=== PATIENT | female | born 1950 ===

== ENCOUNTER 2024-11-03 14:36 | Outpatient (REF) | payer OTHER, SELFPAY ==
--- OUTSIDE RECORDS SUMMARY | 2024-11-03 18:00 | XMS_ITS | Continuity of Care Document ---
Author Organization [facility], [facility] Address [address] [place] [address] Assessment Encounter Date Assessment Date Assessment LastModified by Organization Details LastModified Time 11/03/2024 11/03/2024 [address] [place] [id number] (EMAIL ADMINISTRATOR) MDM MODERATE MUST MEET 2 OUT OF 3 ELEMENTS: PROBLEMS, DATA OR RISK ELEMENT 1: PROBLEMS ADDRESSED 1 OR MORE CHRONIC ILLNESS WITH EXACERBATION OR 2 OR MORE STABLE CHRONIC ILLNESSES OR 1 UNDIAGNOSED NEW PROBLEM OR 1 ACUTE ILLNESS W/SYMPTOMS OR 1 ACUTE COMPLICATED INJURY ELEMENT 2: DATA MUST MEET 1 OF 3 CATEGORIES CATEGORY 1: REVIEW OF PRIOR EXTERNAL NOTES, REVIEW OF RESULTS, ORDERING OF EACH TEST, ASSESSMENT REQUIRING INDEPENDENT HISTORIAN OR CATEGORY 2: INDEPENDENT INTERPRETATION OF TESTS BY ANOTHER PHYSICIAN OR SPECIALIST OR CATEGORY 3: DISCUSSION OF MGT OR TEST INTERPRETATION W/EXTERNAL PHYSICIAN OR SPECIALIST ELEMENT 3: RISK RISK OF COMPLICATIONS AND/OR MORBIDITY OR MORTALITY OF PATIENT MANAGEMENT PROVIDER MUST THOROUGHLY DOCUMENT EACH ELEMENT THAT IS COVERED Not available 11/03/2024 14:20:27 Plan of Treatment Reminders Order Date Submit Date Provider Last Modified By Organization Details Last Modified Time Details Appointments FOLLOW UP 15 2024 02:00P M DR GASTELUM Not available Not available Not available FOLLOW UP 15 2024 02:00P M DR GASTELUM Not available Not available Not available Lab urinalysi s complete, reflex culture 2024 025 [facility], [address] [place] [address], [place], [address], 11/03/2024 14:32:20 Referral None recorded. Procedures None recorded. Surgeries None recorded. Imaging None recorded. Medication Orders clotrimaz ole-betam ethasone 1 %-0.05 % topical cream 2024 025 [facility], [address], [place], [address], 11/03/2024 14:25:00 Patient TargetsNo targets recorded. Patient Instructions Encounter Date Encounter Id Patient Instructions Last Modified By Organization Details Last Modified Time 11/03/2024 [id number] Urinary Tract Infection (UTI) in Women: Care Instructions Not available 11/03/2024 14:24:57 hypothyroidism: care instructions Not available 11/03/2024 14:24:57 Reason for Referral None Reported. 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 Tana nichols [facility] 5 10:39:47 Plantar wart of left foot 282011950144 79807 Active 2022 Tana nichols [facility] 4 08:15:36 Hyperchol esterolem ia 53928009 Active 2023 Tana nichols [facility] 4 08:15:04 Diverticu losis of colon 821767291 Active 2023 Tana nichols [facility] 5 10:39:47 Overactiv e urinary bladder 848905591 Active 2023 Tana nichols [facility] 5 10:39:47 Pain in urethra 3598822 Active 2024 Hermelindo Gastelum, DO [address], [place], [address], [facility] 5 14:14:50 Urinary tract infectiou s disease 17611774 Active 2024 Hermelindo Gastelum, DO [address], [place], [address], [facility] 5 14:23:16 Problem Notes None recorded. Medical Equipment None Reported. Allergies Allergen ID Allergen Name Allergen Category Reaction Reaction Severity Criticality Documentation Date Start Date Code Code System Note Provider Name and Address Organization Details Recorded Time 3796 Product containin g penicilli n (product) medicatio n Not available Not available Not available 12/02/2019 08512 8001 SNOMED [facility] 08:[facility]28 7971 morphine medicatio n Not available Not available Not available 12/13/2023 7052 RxNorm [facility] 4 10:56:39 Medications Name Sig Start Date Stop Date Status Note LastModified by Organization Details LastModified Time oxybutynin chloride ER 10 mg tablet,exte nded release 24 hr Take 1 tablet every day by oral route for 30 days. active Not Available Not Available No t Available cefpodoxime 100 mg tablet TAKE 1 TABLET BY MOUTH TWICE A DAY FOR 7 DAYS 06/09 completed Not Available Not Available Not Available prednisone 20 mg tablet TAKE 3 TABLETS BY MOUTH FOR 5 DAYS TAKE 2 TABLETS DAILY FOR 5 DAYS TAKE 1 TABLET DAILY FOR 5 DAYS 11/14 completed Not Available Not Available Not Available alendronate 70 mg tablet TAKE 1 TABLET EVERY WEEK BY MOUTH 11/27 completed Not Available Not Available Not Available ciprofloxac in 250 mg tablet TAKE 1 TABLET BY MOUTH TWICE A DAY 12/12 completed Not Available Not Available Not Available tramadol 50 mg tablet TAKE 1 TABLET (50 MG TOTAL) BY MOUTH EVERY 6 HOURS NEEDED FOR PAIN 11/27 completed Not Available Not Available Not Available ketorolac 0.5 % eye drops INSTILL 1 DROP IN RIGHT EYE THREE TIMES A DAY FOR 3 WEEKS FOLLOWING SURGERY ON 02-19-2205/14 completed Not Available Not Available Not Available levothyroxi ne 100 mcg tablet 03/30 completed Not Available Not Available Not Available levothyroxi ne 88 mcg tablet TAKE 1 TABLET BY MOUTH EVERY DAY active Not Available Not Available No t Available prednisolon e acetate 1 % eye drops,suspe nsion INSTILL 1 DROP IN BOTH EYES THREE TIMES A DAY 11/27 completed Not Available Not Available Not Available cephalexin 500 mg capsule TAKE 1 CAPSULE BY MOUTH THREE TIMES A DAY FOR 7 DAYS 12/12 completed Not Available Not Available Not Available clotrimazol e-betametha sone 1 %-0.05 % topical cream Apply 1 applicati on twice a day by topical route as directed for 10 days. 2024 active Not Available Not Available Not Avai lable lisinopril 10 mg tablet TAKE 1 TABLET BY MOUTH EVERY DAY active Not Available Not Available No t Available morphine 15 mg immediate release tablet TAKE 1 TABLET (15 MG TOTAL) BY MOUTH EVERY 6 (SIX) HOURS NEEDED FOR PAIN 12/12 completed Not Available Not Available Not Available ondansetron 4 mg disintegrat ing tablet DISSOLVE 1 TO 2 TABLET BY MOUTH EVERY 8 HOURS NEEDED FOR NAUSEA/VO MITING 12/12 completed Not Available Not Available Not Available Vitamin B12 500 mcg tablet Take 2 tablets every day by oral route. active Not Available Not Available No t Available rosuvastati n 10 mg tablet TAKE 1 TABLET BY MOUTH EVERY DAY FOR 30 DAYS active Not Available Not Available No t Available nitrofurant oin monohydrate /macrocryst als 100 mg capsule TAKE 1 CAPSULE BY MOUTH TWICE A DAY FOR 5 DAYS 05/14 completed Not Available Not Available Not Available Vitamin D3 2,000 IU daily active Not Available Not Available No t Available Vitals Date Recorded Body height Body mass index (BMI) Body weight Heart rate Oxygen saturation Oxygen saturation in Arterial blood by Pulse oximetry Systolic blood pressure Diastolic blood pressure Provider Name and Address Organization Details Last Updated DateTime 5 160.66 cm 21.8 kg/m2 74452.1 7 g 77 /min 97 % 97 % 118 mm[Hg] 78 mm[Hg] Tana Fernando [facility] 5 13:58:58 Social History Question Answer Notes LastModified by Organizat ion Details LastModified Time Tobacco Smoking Status Former Smoker Hermelindo Gastelum, DO [address], [place], [address], [facility] 12/02/2019 09:18:05 What Was The Date Of Your Most Recent Tobacco Screening? 11/03/2024 [email or web address] Information not available 11/03/2024 Do You Or Have You Ever Used Any Other Forms Of Tobacco Or Nicotine? No Information not available 11/27/2022 Sex: Unknown Functional Status None recorded. Mental Status None recorded. Family History Nothing Reported. Medical History No medical history recorded. Gynecological HistoryNo gynecological history recorded. Obstetrics History GPAL:G 0 P 0 0 0 0 Immunizations Vaccine Type Date Status Note Provider Nam e and Address Organization Details Recorded Time COVID-19, mRNA, LNP-S, PF, 100 mcg/0.5mL dose or 50 mcg/0.25mL dose 1 completed Not Available [facility] 04/02/2023 05:06:18 COVID-19, mRNA, LNP-S, PF, 100 mcg/0.5mL dose or 50 mcg/0.25mL dose 1 completed Not Available [facility] 04/02/2023 05:06:18 Influenza, split virus, quadrivalent, preservative 1 completed Not Available [facility] 04/02/2023 05:06:18 COVID-19, mRNA, LNP-S, PF, 100 mcg/0.5mL dose or 50 mcg/0.25mL dose 1 completed Not Available [facility] 04/02/2023 05:06:18 Pneumococcal conjugate PCV 13 1 completed Not Available [facility] 04/02/2023 05:06:19 influenza, unspecified formulation 2 completed Not Available [facility] 04/02/2023 05:06:19 pneumococcal polysaccharide PPV23 3 completed Not Available [facility] 04/02/2023 05:06:19 COVID-19 mRNA, bivalent, original/Omicron BA.1, Non-US Vaccine (Spikevax Bivalent), Moderna 3 completed Not Available [facility] 04/02/2023 05:06:18 Influenza, split virus, quadrivalent, preservative 8 completed Not Available [facility] 04/02/2023 05:06:18 Influenza, split virus, quadrivalent, preservative 9 completed Not Available [facility] 04/02/2023 05:06:18 Influenza, split virus, quadrivalent, preservative 0 completed Not Available [facility] 04/02/2023 05:06:18 zoster recombinant 0 completed Not Available [facility] 04/02/2023 05:06:18 zoster recombinant 1 completed Not Available [facility] 04/02/2023 05:06:18 Past Encounters Encounter ID Performer Location Encounter Start Date Encounter Closed Date Diagnosis/Indication Diagnosis SNOMED-CT Code Diagnosis ICD10 Code Diagnosis Note [id number] Hermelindo Gastelum, [facility] [address],[place] [address] 11/03/2024 13:48:10 11/03/2024 14:52:14 Depression screening 217018141 Z13.31 neg Pain in urethra 1503551 N36.8 will try local treatment after she gives us a ur sample Hypothyroidism 11754715 E03.9 will rechk her lab in a few months Hypercholesterolemia 136 90442 E78.00 will start with rosuvastat in Diverticul osis of colon 177390410 K57.30 cont fiber but having small bouts of inflammati ontold to try ibuprofen and get back Urinary tr act infectious disease 27094372 N39.0 need sample Health Concerns Section Related Observation LastModified by Organization Detai ls LastModified Time None Recorded Concern Status LastModified by Organization Details LastModified Time None Recorded Payers Encounter Date Sequence Insurance Name Policy Number Policy Amezquita Covered Member ID Amezquita Member ID Guarantor Name 11/03/2024 1 [facility] [id number] Komal De Los Santos [id number] Komal De Los Santos Notes Date Note Type Note Provider Name a nd Address Organization Details Recorded Time 11/03/2024 text/html here for rechk h as her now in the [facility] homes[place] has an irritation at the site of her urethrasymptom is there all the time she also describes an occ heaviness at night on her chest that will last a couple minutes divertic has been quiet she has been very careful with her diet prior:still having discomfort to her LLQ abd on occ and has been better with metamucil but still has occ pain in her LLQ region and her back no fever no chills etcalso having issues with her bladder frequency Hermelindo Gatselum, DO [address], [place], [address], [facility] 11/03/2024 14:39:01 OBGyn Episode No OBEpisode recorded.
--- OUTSIDE RECORDS SUMMARY | 2024-11-03 18:00 | XMS_ITS | Data Portability ---
Author Organization [facility], Home Service Address [address] [facility] [place] [address] Assessment Encounter Date Assessment Date Assessment LastModified by Organization Details LastModified Time 06/09/2024 06/09/2024 [id number] [place] [id number] (PERSONAL DEVELOPMENT COACH) MDM HIGH MUST MEET 2 OUT OF 3 ELEMENTS: PROBLEMS, DATA OR RISK ELEMENT 1: PROBLEMS 1 OR MORE CHRONIC ILLNESS W/SEVERE EXACERBATION, PROGRESSION MAY REQUIRE HOSPITAL LEVEL CARE OR 1 ACUTE OR CHRONIC ILLNESS OR INJURY THAT POSES A THREAT TO LIFE OR BODILY FUNCTION ELEMENT 2: DATA: MUST MEET 2 OF 3 CATEGORIES CATEGORY 1 REVIEW OF PRIOR EXTERNAL NOTES REVIEW OF THE RESULTS ORDERING OF EACH TEST ASSESSMENT REQUIRING INDEPENDENT HISTORIAN(S) CATEGORY 2: INDEPENDENT INTERPRETATION OF TESTS BY ANOTHER PROVIDER/SPECIALI ST CATEGORY 3: DISCUSSION OF MGT OR TEST INTERPRETATION W/EXTERNAL PHYSICIAN/SPECIAL IST ELEMENT 3: RISK HIGH RISK OF MORBIDITY FROM ADDITIONAL DIAGNOSTIC TESTING OR TREATMENT PROVIDER MUST THOROUGHLY DOCUMENT EACH ELEMENT THAT IS COVERED Not available 06/09/2024 11:18:21 08/11/2024 08/11/2024 [id number] [place] [id number] (PERSONAL DEVELOPMENT COACH) MDM MODERATE MUST MEET 2 OUT OF [...] EACH ELEMENT THAT IS COVERED Not available 08/11/2024 14:07:36 11/03/2024 11/03/2024 [id number] [place] [id number] (PERSONAL DEVELOPMENT COACH) MDM MODERATE MUST MEET 2 OUT OF [...] urinalysi s complete, reflex culture 2024 025 [facility], [address] [place] [address], [place], [address], 11/03/2024 14:32:20 CBC w/ auto diff 2023 024 [facility], [place], [address], 06/12/2024 12:58:16 ferritin, serum or plasma 2023 024 [facility], [place], [address], 06/09/2024 11:19:16 folate, serum 2023 024 [facility], [place], [address], 06/09/2024 11:19:16 iron + total iron-bind ing capacity (TIBC), serum 2023 [facility], [place], [address], 06/09/2024 11:19:16 vitamin B12, serum [address] [facility], [place], [address], 06/12/2024 13:23:08 C-reactiv e protein, quantitat ev, serum or plasma 2023 024 [facility], [place], [address], 06/09/2024 11:19:16 ESR (erythroc yte sedimenta tion rate), blood 2023 [facility], [place], [address], 06/09/2024 11:19:16 vitamin D, 25-hydrox y, total, serum 2023 [facility], [place], [address], 06/09/2024 11:19:15 CMP, serum or plasma 2023 024 [facility], [place], [address], 06/09/2024 11:19:16 TSH, serum or plasma 2023 024 [facility], [place], [address], 08/06/2024 01:12:51 lipid panel, blood 2023 024 [facility], [place], [address], 03/25/2024 12:11:36 TSH, serum or plasma 2023 024 [facility], [place], [address], 03/25/2024 12:11:36 lipid panel, blood 2023 024 [facility], [place], [address], 12/17/2023 15:43:36 CBC w/ auto diff 2023 024 [facility], [place], [address], 12/17/2023 12:56:00 CMP, serum or plasma 2023 024 [facility], [place], [address], 12/13/2023 11:22:13 vitamin D, 25-hydrox y, total, serum 2023 024 [facility], [place], [address], 12/17/2023 15:15:39 Referral None recorded. Procedures None recorded. Surgeries None recorded. Imaging None recorded. Medication Orders clotrimaz ole-betam ethasone 1 %-0.05 % topical cream 2024 025 [facility], [address] [place], [address], 11/03/2024 14:25:00 oxybutyni n chloride ER 10 mg tablet,ex tended release 24 hr 2023 024 [facility]2024, [address] [place], [address], 08/11/2024 14:15:51 rosuvasta tin 10 mg tablet 2023 024 [facility]2024, [address] [place], [address], 03/25/2024 12:08:06 Patient TargetsNo targets recorded. Patient Instructions Encounter Date Encounter Id Patient Instructions Last Modified By Organization Details Last Modified Time 03/25/2024 [id number] osteoporosis: care instructions Not available 03/25/2024 12:08:04 hypothyroidism: care instructions Not available 03/25/2024 12:08:04 06/09/2024 [id number] hypothyroidism: care instructions Not available 06/09/2024 11:17:46 11/03/2024 [id number] Urinary Tract Infection (UTI) in Women: Care Instructions Not available 11/03/2024 14:24:57 hypothyroidism: care instructions Not available 11/03/2024 14:24:57 Reason for Referral None Reported. Results Created Date Observation Date Name Description Value Unit Range Abnormal Flag Note LastModifiedBy Organization Detail LastModifiedTime Result Notes None recorded. Problems Name Problem SNOMED Code Status Onset Date Resolution Date Notes Provider Name and Address Organization Details Recorded Time Hypothyro idism 10561172 Active 2019 Tana nichols [facility] 4 08:15:07 Osteoporo sis 54334601 Active 2019 Tana nichols [facility] 4 08:15:10 Acquired hydroneph rosis due to ureterope lvic junction obstructi on 026293501 Active 2021 left Tana nichols [facility] 5 10:39:47 Plantar wart of left foot 006860565718 23596 Active 2022 Tana nichols [facility] 4 08:15:36 Hyperchol esterolem ia 70044429 Active 2023 Tana nichols [facility] 4 08:15:04 Diverticu losis of colon 101628881 Active 2023 Tana nichols [facility] 5 10:39:47 Overactiv e urinary bladder 648099102 Active 2023 Tana nichols [facility] 5 10:39:47 Pain in urethra 5002950 Active 2024 Hermelindo Lam Chiquita, DO [address] [place], [address], [facility] 5 14:14:50 Urinary tract infectiou s disease 27410372 Active 2024 Hermelindo Lam Chiquita, DO [address] [place], [address], [facility] 5 14:23:16 Problem Notes None recorded. Medical Equipment None Reported. Allergies Allergen ID Allergen Name Allergen Category Reaction Reaction Severity Criticality Documentation Date Start Date Code Code System Note Provider Name and Address Organization Details Recorded Time 3796 Product containin g penicilli n (product) medicatio n Not available Not available Not available 12/02/2019 26018 8001 SNOMED [facility] 08:15:28 7971 morphine medicatio n Not available Not available Not available 12/13/2023 7052 RxNorm [facility] 4 10:56:39 Medications Name Sig Start [...] and Address Organization Details Last Updated DateTime 4 160.66 cm 21.8 kg/m2 65100.8 1 g 101 /min 98 % 98 % 136 mm[Hg] 88 mm[Hg] Tana Dempsey [facility] 4 10:59:39 Date Recorded Body height Body mass index (BMI) Body weight Heart rate Oxygen saturation Oxygen saturation in Arterial blood by Pulse oximetry Systolic blood pressure Diastolic blood pressure Provider Name and Address Organization Details Last Updated DateTime 4 160.66 cm 21.3 kg/m2 24505.6 8 g 81 /min 98 % 98 % 110 mm[Hg] 60 mm[Hg] Jennifer Arrieta [facility] 4 11:43:05 Date Recorded Body height Body mass index (BMI) Body weight Heart rate Oxygen saturation Oxygen saturation in Arterial blood by Pulse oximetry Systolic blood pressure Diastolic blood pressure Provider Name and Address Organization Details Last Updated DateTime 4 160.66 cm 20.9 kg/m2 42028.4 1 g 91 /min 99 % 99 % 128 mm[Hg] 82 mm[Hg] Tana Abdullahi [facility] 4 13:45:21 Date Recorded Body height Body mass index (BMI) Body weight Heart rate Oxygen saturation Oxygen saturation in Arterial blood by Pulse oximetry Systolic blood pressure Diastolic blood pressure Provider Name and Address Organization Details Last Updated DateTime 5 160.66 cm 21.8 kg/m2 06530.1 7 g 77 /min 97 % 97 % 118 mm[Hg] 78 mm[Hg] Tana Abdullahi [facility] 5 13:58:58 Social History Question Answer Notes LastModified by Organizat ion Details LastModified Time Tobacco Smoking Status Former Smoker Hermelindo Gastelum, DO [address] [place] [address], [phone] 12/02/2019 09:18:05 What Was The [...] 50 mcg/0.25mL dose 1 completed Not Available [facility] 04/02/2023 05:06:18 COVID-19, mRNA, LNP-S, PF, 100 mcg/0.5mL dose or 50 mcg/0.25mL dose 1 completed Not Available [facility] 04/02/2023 05:06:18 Influenza, split virus, quadrivalent, preservative 1 completed Not Available [facility] 04/02/2023 05:06:18 COVID-19, mRNA, LNP-S, PF, 100 mcg/0.5mL dose or 50 mcg/0.25mL dose 1 completed Not Available [facility] 04/02/2023 05:06:18 Pneumococcal conjugate PCV 13 1 completed Not Available [facility] 04/02/2023 05:06:19 influenza, unspecified formulation 2 completed Not Available [facility] 04/02/2023 05:06:19 pneumococcal polysaccharide PPV23 3 completed Not Available [facility] 04/02/2023 05:06:19 COVID-19 mRNA, bivalent, original/Omicron BA.1, Non-US Vaccine (Spikevax Bivalent), Moderna 3 completed Not Available [facility] 04/02/2023 05:06:18 Influenza, split virus, quadrivalent, preservative 8 completed Not Available [facility] 04/02/2023 05:06:18 Influenza, split virus, quadrivalent, preservative 9 completed Not Available [facility] 04/02/2023 05:06:18 Influenza, split virus, quadrivalent, preservative 0 completed Not Available [facility] 04/02/2023 05:06:18 zoster recombinant 0 completed Not Available [facility] 04/02/2023 05:06:18 zoster recombinant 1 completed Not Available [facility] 04/02/2023 05:06:18 Past Encounters Encounter ID Performer Location Encounter Start Date Encounter Closed Date Diagnosis/Indication Diagnosis SNOMED-CT Code Diagnosis ICD10 Code Diagnosis Note [id number] Hermelindo Gastelum [facility] [address] [facility] [address] 12/02/2019 09:10:33 12/02/2019 10:13:29 Hypothyroidism 38160236 E03.9 will rechk her lab in a few months Osteoporosis 88810948 M8 1.0 follows endocrione Increased blood pressure 81577540 R03.0 will use home bp and check and let me know if it is elevated there rechk in fall Hermelindo Gastelum [facility] [address] [facility],[place] [address] 03/30/2020 10:50:17 03/30/2020 11:41:38 Hypothyroidism 10502224 E03.9 will rechk her lab in a few months Osteoporosis 10645652 M8 1.0 follows endocrione [id number] Hermelindo Gastelum [facility] [address] [facility],[place] [address] 11/07/2020 14:00:03 11/07/2020 14:49:21 Active or passive immunization 552286397 Z23 is in line for the covid vacc Adult [facility] examination 048439702 Z00.00 doing great reviewed lab in detail doing great Osteopenia 296728632 M85 .80 [id number] Hermelindo Gastelum [facility] [address],[place] [address] 03/21/2021 13:56:20 03/21/2021 14:46:36 Hypothyroidism 32230387 E03.9 will rechk her lab in a few months Osteoporosis 59507650 M8 1.0 follows endocrine and will get bone density [id number] Hermelindo Gastelum [facility] [address] [facility],[place] [address] 11/14/2021 11:50:21 11/14/2021 13:29:45 Active or passive immunization 737572532 Z23 is in line for the covid vacc Adult heal th examination 255438481 Z00.00 doing great reviewed lab in detailwe will have her try the boniva once a month and see if we can get this Osteoporosis 51875133 M8 1.0 follows endocrine [place] [id number] STELLA HAN [facility] [address],[place] [address] 01/26/2022 13:24:00 01/29/2022 15:57:15 Pre-surgery evaluation 073642953 Z01.818 The patient was seen in the office today for pre-op evaluation . All medical conditions on patient's problem list were addressed and are currently stable, no interventi on needed at this time. Based on history and physical performed, the patient is cleared for surgery. [id number] STELLA HAN [facility] [address],[place] [address] 02/23/2022 08:40:16 02/23/2022 13:59:11 Acquired hydronephrosis due to ureteropelvic junction obstruction 881079612 N13.0 will fu with MRI for full assessment of the area of concern [id number] Hermelindo Gastelum DO [facility] [address],[place] [address] 11/27/2022 10:49:28 11/27/2022 11:38:02 Active or passive immunization 660027832 Z23 is in line for the covid vacc Adult [facility] examination 575171651 Z00.00 doing great reviewed lab in detailwe will have her try the boniva once a month and see if we can get this Hepatitis C screening 41 3724038 Z11.59 [address]ar wa rt of left foot 8397088199 1007571 B07.0 Osteoporosis 04143804 M8 1.0 follows endocrine she has finished alendronat e for 1 year will need a follow up BMD [id number] Hermelindo Gastelum DO [facility] [address], [place] [address] 12/13/2023 10:49:25 12/13/2023 11:31:41 Active or passive immunization 967519963 Z23 is in line for the covid vacc Adult heal th examination 403854881 Z00.00 doing ok physically except for issues with her uro stent'her stress levels are very high due to issues taking are of her 's cvareviewe d lab in detail [id number] Hermelindo Gastelum [facility] [address],[place] [address] 03/25/2024 11:37:01 03/27/2024 12:48:29 Depression screening 620962130 Z13.31 neg Hypothyroidism 48324186 E03.9 will rechk her lab in a few months Osteoporosis 43346636 M8 1.0 follows endocrine she has finished alendronat e for 1 year will need a follow up BMD Acquired hydronephrosis due to ureteropelvic junction obstruction 042060190 N13.0 had recent stent placed Hypercholesterolemia 136 34838 E78.00 will start with rosuvastat in [id number] [facility] [address],[place] [address] 06/09/2024 08:44:12 06/09/2024 11:55:13 Acquired hydronephrosis due to ureteropelvic junction obstruction 533589796 N13.0 had recent stent placed Hypothyroidism 89705606 E03.9 will rechk her lab in a few months Diverticul osis of colon 745867938 K57.30 will start fiber supp start slowly [id number] [facility] [address],[place] [address] 08/11/2024 13:34:59 08/11/2024 14:21:08 Hypercholesterolemia 66257937 E78.00 will start with rosuvastat in Hypothyroidism 54301431 E03.9 will rechk her lab in a few months Osteoporosis 71522319 M8 1.0 follows endocrine she has finished alendronat e for 1 year will need a follow up BMD Diverticul osis of colon 689793811 K57.30 cont fiber but having small bouts of inflammati ontold to try ibuprofen and get back Overactive urinary bladder 028437098 N32.81 will try oxybut [id number] [facility] [address],[place] [address] 11/03/2024 13:48:10 11/03/2024 14:52:14 Depression screening 536705331 Z13.31 neg Pain in urethra 7085469 N36.8 will try local treatment after she gives us a ur sample Hypothyroidism 29959323 E03.9 will rechk her lab in a few months Hypercholesterolemia 136 71822 E78.00 will start with rosuvastat in Diverticul osis of colon 389399895 K57.30 cont fiber but having small bouts of inflammati ontold to try ibuprofen and get back Urinary tr act infectious disease 38534545 N39.0 need sample Health Concerns Section Related Observation LastModified by Organization Detai ls LastModified Time None Recorded Concern Status LastModified by Organization Details LastModified Time None Recorded Advance Directives Directive None Recorded Payers Encounter Date Sequence Insurance Name Policy Number Policy Amezquita Covered Member ID Amezquita Member ID Guarantor Name 12/13/2023 1 [facility] [id number] Komal L Hoar [id number] Komal L Hoar 03/25/2024 1 [facility] [id number] Komal L Hoar [id number] Komal L Hoar 06/09/2024 1 [facility] [id number] Komal L Hoar [id number] Komal L Hoar 08/11/2024 1 [facility] [id number] Komal L Hoar [id number] Komal L Hoar 11/03/2024 1 [facility] [id number] Komal L Hoar [id number] Komal L Hoar Notes Date Note Type Note Provider Name a nd Address Organization Details Recorded Time 4 text/html Annual WellnessReported bypatient.Diet and Nutrition:healthy diet Fracture Risk:no history of fractures; no recent explained fracture; no sudden unexplained fractures; no previous musculoskeletal injuries Physical Activity:exercises on a regular basis; recent increase in physical activity; good physical condition Additional Lifestyle Factors:no tobacco use; no alcohol intake; stopped drinking alcohol Depression Risk:no loss of interest in activities; no significant changes in weight; no agitation; no loss of energy; no feelings of worthlessness or guilt; no thoughts of suicide; no history of depression; no history of mood disorders;feels sad, empty, or tearful;sleep disturbances or insomnia Hearing:no loss of hearing Vision:no vision problems her for cpe under stress as had a cva now at [facility] overwhelmed Hermelindo Gastelum DO [address] [place], [address], [facility] 12/13/2023 11:22:41 4 text/html here for loyd and is doing ok relates that she is under a lot of stress w her husbandhas been seeing dr bingham for her uj obstruct and has required a repeat stentdoes have poly uria and this has been the major med issue discussed her lab in detailhas elevated LDL and this has dramatically increased from 161 to 195 Hermelindo Gastelum DO [address] [place], [address], [facility] 03/25/2024 12:11:06 4 text/html patient is evaluated via tele/video assessment per patient consentduring current pandemic still having an issue with her kidneyshad been in ER for intense painct negur was contam culture but UA was posthey gave her dialudid (vomiting) and given vantin and sent home telling her she had diverticulitis (this was not seen on CT) Hermelindo Gastelum DO [address] [place], [address], [facility] 06/09/2024 11:18:28 4 text/html still having discomfort to her LLQ abd on occ and has been better with metamucil but still has occ pain in her LLQ region and her back no fever no chills etcalso having issues with her bladder frequency Hermelindo Gastelum DO [address] [place], [address], [facility] 08/11/2024 14:17:31 5 text/html here for loyd has her now [facility] [...] having issues with her bladder frequency Hermelindo Gastelum, DO [address] [facility], [place], [address], [facility] 11/03/2024 14:39:01 OBGyn Episode No OBEpisode recorded.
[2024-11-03 18:38] LABS: Appearance Urine Cloudy; Color Urine Yellow; Glucose Urine UA Negative (Negative); Leukocyte Esterase Urine Moderate (2+) (Negative); Nitrite Urine Negative (Negative); PH 5.5 (5.0-9.0); UMIC TRIGGER UACC YES; Urine Blood Moderate (2+) (Negative); Urine Ketones Negative (Negative); Urine Protein 100 (2+) mg/dL (Neg-Trace)
[2024-11-03 19:09] LABS: Bacteria Urine Trace (None Seen); Calcium Oxalate Crystals Urine Present; Hyaline Casts Urine 0-2 /LPF (0-2); UACC Culture Trigger YES
== END 2024-11-03 14:37 | disposition home or self-care (01) ==
LOC: HO.MANLDS 14:36
PROVIDERS: Visit Provider Internal Medicine
DX: N39.0 Urinary tract infection, site not specified (principal)
CPT/HCPCS: 81001; 87086